=== PATIENT | male | born 1995 | race Caucasian/White ===

== ENCOUNTER → 2024-04-22 | Outpatient (CLI) | payer OTHER, SELFPAY ==
[2024-04-22 13:17] LABS: Absolute Lymphocyte Count 1.64 X10^3/uL (0.83-4.51); Absolute Neutrophil Count 7.2 X10^3/uL (2.0-7.7); Basophil# 0.04 X10^3/uL; Basophil% 0.4 % (0-1); Eosinophil# 0.04 X10^3/uL; Eosinophils% 0.4 % (0-5); Hematocrit 45.4 % (40-54); Lymphocyte # 1.64 X10^3/ul (0.83-4.51); Lymphocyte % 17.5 % (19-41); Mean Corpuscular Hgb 29.8 pg (27.0-32.0); Mean Corpuscular Volume 90.3 fL (80-94); Mean Platelet Vol. 10.4 fl (6.2-12.0); Monocyte% 4.3 % (0-10); NRBC Flagged by Analyzer 0 % (0-5); Neutrophil # 7.21 X10^3/uL (2.7-7.7); Neutrophil % 77.2 % (47-70); Platelet Count 345 K/mm3 (150-450); RBC Distribution Width CV 12.6 % (11.6-14.6); RBC Distribution Width SD 41.5 fl (35.1-43.9); Red Blood Count 5.03 M/mm3 (4.6-6.2); White Blood Count 9.4 K/mm3 (4.4-11.0)
[2024-04-22 13:35] LABS: ALB/GLOB Ratio 1.7 RATIO (0.9-2.4); AST(SGOT) 16 U/L (15-37); Alanine Aminotransfer ALT/SGPT 21 U/L (16-61); Albumin, Serum 4.7 g/dL (3.2-5.0); Alkaline Phosphatase 57 U/L (45-117); Anion Gap 7 (5-15); BUN 8 mg/dL (7-18); BUN/Creat Ratio 11.3 RATIO (10-20); Calcium,Total 9.5 mg/dL (8.5-10.1); Chloride 104 mmol/L (98-107); Creatinine, Serum 0.71 mg/dL (0.70-1.30); EST Glomerular Filtration Rate 139 mL/min (>60); Est Glom Filt Rate - Afr Amer 169 mL/min (>60); Globulin 2.8 g/dL (2.2-4.2); Glucose 92 mg/dL (74-106); Protein, Total 7.5 g/dL (6.4-8.2); Sodium Level 140 mmol/L (136-145)
[2024-04-22 14:50] LABS: HIV - WCH Non-Reactive (Nonreactive)
[2024-04-24 12:09] LABS: ANTINUCLEAR ANTIBODIES DIRECT Negative (Negative)
[2024-04-24 15:09] LABS: HEPATITIS B SURFACE AG Negative (Negative); Hep C Antibodies Non Reactive (Non Reactive); Hepatitis A IgM Antibody Negative (Negative); Hepatitis B Core AB IgM Negative (Negative); Lyme Scn Total Ab w/Rflx Negative (Negative)
== END | disposition home or self-care (01) ==
LOC: VSLAB 11:05
PROVIDERS: Visit Provider Nurse Practitioner Family
DX: R19.4 Change in bowel habit (principal); M25.50 Pain in unspecified joint; R63.4 Abnormal weight loss
CPT/HCPCS: 36415; 80053; 80074; 85025; 86038; 86618; 86703

== ENCOUNTER 2024-06-23 07:25 | Day surgery (SDC) | payer OTHER, SELFPAY ==
[2024-06-23] MEDS: Lactated Ringers 1,000 ML 15 ML IV (07:47)
[2024-06-23 07:48] VITALS: BP 117/80; PULSE 83; RESP 18; TEMP 36.2; O2SAT 100; BMI 22.6
[2024-06-23 07:56] VITALS: BP 117/80; PULSE 83; RESP 18; TEMP 36.2; O2SAT 100
--- NOTE | 2024-06-23 07:56 | PRE.ANES_ITS ---
ASA Classification* ASA Classification ASA Classification: 2 Assessment & Plan Anesthesia* Anesthesia Assessment Anesthesia Assessment: Discussed sedation and/or anesthesia options, risks, benefits, and alternatives with patient/parents/legal guardian/POA. Questions invited. The patient/parents/legal guardian/POA seems to understand and agrees to proceed with anesthesia plan. Reviewed the physical assessment, medical history, allergy history and patient home medications list prior to surgery/procedure/anesthetic and documented any changes. Performed airway and anesthesia risk assessments. Anesthesia Type Anesthesia Type: MAC (see written pre anesthesia record for full assessment ) Anesthesia Focused Assessment* Temperature: 97.2 F Pulse Rate: 83 Blood Pressure: 117/80 Respiratory Rate: 18 Pulse Ox: 100 Airway Assessment Mouth opens: >3 cm Mallampati Score: II Focused Labs Anesthesia Preop lab: CBC WBC 9.4 K/mm3 (4.4-11.0) 04/22/24 11:10 RBC 5.03 M/mm3 (4.6-6.2) 04/22/24 11:10 Hgb 15.0 g/dL (13.0-16.5) 04/22/24 11:10 Hct 45.4 % (40-54) 04/22/24 11:10 Plt Count 345 K/mm3 (150-450) 04/22/24 11:10 CHEMISTRY Potassium 4.0 mmol/L (3.5-5.1) 04/22/24 11:10 Sodium 140 mmol/L (136-145) 04/22/24 11:10 BUN 8 mg/dL (7-18) 04/22/24 11:10 Creatinine 0.71 mg/dL (0.70-1.30) 04/22/24 11:10 Glucose 92 mg/dL (74-106) 04/22/24 11:10 COAG Pre-Assessment Diagnosis/Proposed Procedure Planned Operative Procedure(s): COLONOSCOPY, EGD Anesthesia History 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 When Was Last Pacemaker Check QUESTION #4 FULL TEXT: You/Your Family Experience fever (hyperthermia) with Anesthesia Last Oral Intake Last Oral intake: Last Oral Intake NPO since 00:00 06/23/24 07:48 Meds taken in AM with sips of Yes 06/23/24 07:48 water? Meds patient instructed to take am of surgery PONV PONV - bacteriology research assistant: PONV - bacteriology research assistant Female No 06/18/24 14:27 HX of Motion Sickness No 06/18/24 14:27 HX of N/V After Surgery No 06/18/24 14:27 Non-Smoker No 06/18/24 14:27 Duration of Surgery greater No 06/18/24 14:27 than 60 minutes Number of Risk Factors PONV Score Height & Weight Height & Weight: Anesthesia: Height & Weight Height 6 ft 06/23/24 07:48 Weight: 75.568 kg 06/23/24 07:48 Body Mass Index (BMI) 22.6 06/23/24 07:48 Respiratory Assessment Respiratory Assessment - bacteriology research assistant: Respiratory Tract Infection Hx - bacteriology research assistant Hx Respiratory Tract Infection No 06/18/24 14:27 STOP Sleep Apnea STOP Sleep Apnea - bacteriology research assistant: STOP Sleep Apnea - bacteriology research assistant Hx Hypertension No 06/18/24 14:27 Hx Sleep Apnea No 06/18/24 14:27 CPAP BIPAP Do you snore loudly (louder Yes 06/18/24 14:27 than talking or can be heard Do you often feel tired/ No 06/18/24 14:27 fatigued/ sleepy during daytime? Has anyone observed you stop No 06/18/24 14:27 breathing during sleep? STOP Results Negative 06/18/24 14:27 QUESTION #5 FULL TEXT : Do you snore loudly (louder than talking or can be heard through closed doors)? 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 Specify any problems Hx of Preganancy in last 3 N/A 06/18/24 14:27 Months Nurse Filling Out Transfusion [email or web address] 06/18/24 14:27 & Questions: Date: 06/18/24 06/18/24 14:27 Time: 14:30 06/18/24 14:27 Patient unable to answer at this time (ie. confused, unrespo /Reproduction History /Reproductive History - bacteriology research assistant: /Reproductive Hx- bacteriology research assistant Hx Now Gestational Age (in weeks): EDC: Hx Hx Para Hx Section SAB Active Medications Active Medications: Current Medications Generic Name Dose Route Start Last Admin Trade Name Freq PRN Reason Stop Dose Admin Lactated Ringer's 1,000 mls @ 15 mls/hr 06/23/24 07:30 06/23/24 07:47 IV 15 mls/hr .Q48H KARL Administration PFSH Medical History Hypothyroid Back pain Smoker Gastric reflux Home Medications ?Medication ?Instructions ?Recorded ?Last Taken ?Type dextroamphetamine-amphetamine ER 1 cap PO QDAY 05/20/24 06/23/24 History 30 mg 24hr capsule,extend release omeprazole 40 mg capsule,delayed 40 mg PO DAILY #60 caps 05/20/24 06/22/24 Rx release Allergy/AdvReac Type Severity Reaction Status Date / Time No Known Allergies Allergy Verified 06/23/24 07:47 Surgical History [place] teeth extracted H/O rhinoplasty Social History Smoking Status: Current every day smoker tobacco type: e-cigarettes alcohol intake: never substance use type: does not use Review of Systems (Anesthesia) ROS Narrative System reviewed and no additional complaints, except as documented.
--- NOTE | 2024-06-23 08:07 | PCM.HP.BLA ---
History and Physical Date of Admission: 06/23/24 Intake Vital Signs 05/20/2413:03 Height 6 ft Weight: 167 lb BMI 22.6 BP 153/92 H Blood Pressure Location Rt brachial Position Sitting Respiration 18 Pulse 75 Pulse Source Monitor Temp 97.3 F L Temp Source Temporal Pulse Oximetry (%) 100 Oxygen Delivery Method room air Intake Visit Reasons: BLOOD IN STOOL Chief Complaint: blood in stool Accompanied by: Daughter Is patient in pain?: No Allergies No Known Allergies Allergy (Unverified 05/20/24 13:04) Medications ?Medication ?Instructions ?Recorded ?Confirmed ?Type dextroamphetamine-amphetamine ER 1 cap PO QDAY 05/20/24 05/20/24 History 30 mg 24hr capsule,extend release omeprazole 40 mg capsule,delayed 40 mg PO DAILY #60 caps 05/20/24 05/20/24 Rx release PFSH Surgical History (Updated 05/20/24 @ 13:03 by Kristen Espinosa LPN) [place] teeth extracted H/O rhinoplasty Social History (Updated 05/20/24 @ 13:03 by Kristen Espinosa LPN) Smoking Status: Current every day smoker tobacco type: e-cigarettes alcohol intake: never substance use type: does not use HPI HPI HPI: Patient is a 28-year-old male here with several issues. He has been having epigastric pain and unintentional weight loss for the last 6 months. He has also been noting for the last month and a half he has had blood in his stool and mucousy stools. He has never had a colonoscopy or EGD. He denies nausea or vomiting. ROS General General: Yes weight change (loss) and fatigue; No appetite, colon cancer, breast cancer or weakness HEENT HEENT: No difficulty swallowing, eye injury, eye surgery, swollen glands or hoarseness Endo Endocrine: No thyroid disease, diabetes mellitus, thyroid cancer, Hair loss, heat intolerance or cold intolerance Skin Skin: No rash or changing moles Musc Musculoskeletal: Yes joint pain; No back problems, arthritis, rheumatoid arthritis or gout Cardio Cardiovascular: No murmur, pacemaker, heart disease, atrial fibrillation, high blood pressure, heart attack, heart stent, palpitations, shortness of breat with exertion or chest pain Psych Psychiatric: Yes depression and anxiety; No hearing voices Resp Respiratory: Yes shortness of breath, No sleep apnea, No cough, No COPD, No asthma, No emphysema and No wheezing Gastro Gastrointestinal: Yes abdominal pain, No nausea or vomiting, No diarrhea, Yes constipation, Yes blood in stool, Yes acid reflux, Yes hemorrhoids, No ulcers, No gallbladder problem and No black,tarry stools Moe Hematologic: No blood thinners, No blood disorders, No bleeding, No anemia and No blood clots Neuro Neurologic: No numbness, No tingling and No weakness Exam Const General: cooperative Orientation: alert and oriented x3 HENMT Head: normal to inspection Neck Neck: normal visual inspection and full ROM Chest Chest palpation & inspection: normal inspection of the chest Resp Effort & Inspection: normal respiratory effort Auscultation: clear to auscultation bilaterally Cardio Rate: regular rate Rhythm: regular rhythm GI Inspection: non-distended Palpation: soft and nontender Skin General: no rashes or lesions noted Neuro General: patient alert and patient oriented x3 Extrem General: full ROM Psych Appearance: grossly normal Mental Status: mental status grossly normal Assessment and Plan Assessment and Plan (1) Blood in stool, gautam: Status: Acute (2) Acid reflux: Status: Acute (3) Epigastric pain: Status: Acute Orders: Orders Colonoscopy Today EGD Today Medications: New omeprazole 40 mg PO DAILY 60 caps 0RF Plan Patient is having epigastric pain which sounds like peptic ulcer disease as it happens after eating. He says he has been limiting his diet for the last 6 months and completely changed his lifestyle due to the pain and he has been losing weight for the last 6 months. He also notes blood clots in the stool and mucus in his stool which is new over the last month and a half. Plan for EGD and colonoscopy to evaluate and I will also order him a PPI. I explained endoscopy in detail to the patient. I explained the risks including but not limited to stroke or heart attack with anesthesia, perforation of the GI tract, bleeding, infection. I explained that any of these could necessitate further emergency surgery. The patient understands and all questions were answered sufficiently. The patient wishes to proceed with procedure. Mitch Corral MD Pager: [facility] [address] [place] [address], [address] [place] [address] Office: I have examined the patient and the H&P has been reviewed. There are no clinical changes since date of exam.
[2024-06-23 08:50] VITALS: BP 117/80; BP 119/73; PULSE 75; RESP 16; TEMP 36.4; O2SAT 100
--- NOTE | 2024-06-23 08:54 | OP.CCLET_ITS ---
06/23/2024 Isidro Spain [facility], [employer] Re : Upper GI endoscopy procedure for Jaquelin Escudero Dear Judit This procedure was performed on Sunday, June 23, 2024. My impressions and recommendations are as follows: Impressions : - Normal esophagus. - Normal stomach. - Normal examined duodenum. - No specimens collected. Recommendations : - Discharge patient to home. - Resume previous diet. - Continue present medications. - Return to primary care physician. My findings are described in the full procedure note, which is enclosed. If I can be of further assistance, please feel free to contact me at Doctor phone number(s): , Work: . Sincerely, Mitch Corral MD 06/23/2024 8:54:21 AM This report has been signed electronically.
--- NOTE | 2024-06-23 08:54 | OP.EGD_ITS ---
Patient Name: Jaquelin Escudero Procedure Date: 06/23/2024 8:46 AM Date of : 1995 Age: 28 Procedure: Upper GI endoscopy Indications: Heartburn Providers: Mitch Corral MD Referring MD: Isidro Spain [facility], Director Traffic And Planning-c Medicines: Propofol per Anesthesia Patient Profile: This is a 28 year old male. Refer to note in patient chart for documentation of history and physical. Patient has symptoms. Complications: No immediate complications. Procedure: Pre-Anesthesia Assessment: - Prior to the procedure, a History and Physical was performed, and patient medications and allergies were reviewed. The patient's tolerance of previous anesthesia was also reviewed. The risks and benefits of the procedure and the sedation options and risks were discussed with the patient. All questions were answered, and informed consent was obtained. Prior Anticoagulants: The patient has taken no anticoagulant or antiplatelet agents. After reviewing the risks and benefits, the patient was deemed in satisfactory condition to undergo the procedure. After obtaining informed consent, the endoscope was passed under direct vision. Throughout the procedure, the patient's blood pressure, pulse, and oxygen saturations were monitored continuously. The gastroscope was introduced through the mouth, and advanced to the third part of duodenum. The upper GI endoscopy was accomplished without difficulty. The patient tolerated the procedure well. Scope In: 8:25:46 AM Scope Out: 8:28:00 AM Total Procedure Duration Time 0 hours 2 minutes 14 seconds Findings: The esophagus was normal. The stomach was normal. The examined duodenum was normal. Impression: - Normal esophagus. - Normal stomach. - Normal examined duodenum. - No specimens collected. Recommendation: - Discharge patient to home. - Resume previous diet. - Continue present medications. - Return to primary care physician. Procedure Code(s): --- Professional --- 24727, Esophagogastroduodenoscopy, flexible, transoral; diagnostic, including collection of specimen(s) by brushing or washing, when performed (separate procedure) Diagnosis Code(s): --- Professional --- R12, Heartburn CPT copyright 2021 [employer]. All rights reserved. The codes documented in this report are preliminary and upon supervisor propellant charge loading review may be revised to meet current compliance requirements. Mitch Corral MD 06/23/2024 8:54:21 AM This report has been signed electronically. Number of Addenda: 0 Note Initiated On: 06/23/2024 8:46 AM
--- NOTE | 2024-06-23 08:54 | PCM.POST.ANE ---
Anesthesia: Postop Eval I Current Vital Signs Temperature: 97.6 F Pulse Rate: 73 Blood Pressure: 119/73 Respiratory Rate: 14 Pulse Ox: 100 Oxygen Delivery Method: Room Air Assessment Airway patent: Yes Spontaneous unlabored respirations: Yes Mental status: Asleep nausea: No Vomiting: No Anesthesia Complication: No Fluid Hydration Crystalloid volume administer (ml): 800 Total IV fluid infused: 800 Progress Note Anesthesia document: Postop Eval 1 completed: Yes
[2024-06-23 08:55] VITALS: BP 117/71; BP 117/80; BP 119/73; PULSE 73; PULSE 89; RESP 14; RESP 16; TEMP 36.4; O2SAT 100
--- NOTE | 2024-06-23 08:55 | OP.COLON_ITS ---
Patient Name: Jaquelin Escudero Procedure Date: 06/23/2024 8:18 AM Date of : 1995 Age: 28 Procedure: Colonoscopy Indications: Rectal bleeding Providers: Mitch Corral MD Referring MD: Isidro Spain [facility], Professor Of Chemical Engineering-c Medicines: Propofol per Anesthesia Patient Profile: This is a 28 year old male. Refer to note in patient chart for documentation of history and physical. Last Colonoscopy: none. The patient's first colonoscopy is today. Complications: No immediate complications. Procedure: Pre-Anesthesia Assessment: - Prior to the procedure, a History and Physical was performed, and patient medications and allergies were reviewed. The patient's tolerance of previous anesthesia was also reviewed. The risks and benefits of the procedure and the sedation options and risks were discussed with the patient. All questions were answered, and informed consent was obtained. Prior Anticoagulants: The patient has taken no anticoagulant or antiplatelet agents. After reviewing the risks and benefits, the patient was deemed in satisfactory condition to undergo the procedure. After I obtained informed consent, the scope was passed under direct vision. Throughout the procedure, the patient's blood pressure, pulse, and oxygen saturations were monitored continuously. The Endoscope was introduced through the anus and advanced to the cecum, identified by appendiceal orifice and ileocecal valve. The colonoscopy was performed without difficulty. The patient tolerated the procedure well. The quality of the bowel preparation was good. The ileocecal valve, appendiceal orifice, and rectum were photographed. Scope In: 8:32:51 AM Scope Withdrawal Time 0 hours 4 minutes 34 seconds Scope Out: 8:45:50 AM Total Procedure Duration Time 0 hours 12 minutes 59 seconds Findings: The entire examined colon appeared normal on direct and retroflexion views. Impression: - The entire examined colon is normal on direct and retroflexion views. - No specimens collected. Recommendation: - Discharge patient to home. - Resume previous diet. - Continue present medications. - Repeat colonoscopy at age 44 for screening purposes. Procedure Code(s): --- Professional --- 60477, Colonoscopy, flexible; diagnostic, including collection of specimen(s) by brushing or washing, when performed (separate procedure) Diagnosis Code(s): --- Professional --- K62.5, Hemorrhage of anus and rectum CPT copyright 2021 [employer]. All rights reserved. The codes documented in this report are preliminary and upon hyster driver review may be revised to meet current compliance requirements. Mitch Corral MD 06/23/2024 8:55:28 AM This report has been signed electronically. Number of Addenda: 0 Note Initiated On: 06/23/2024 8:18 AM
--- NOTE | 2024-06-23 08:56 | OP.CCLET_ITS ---
06/23/2024 Isidro Spain [facility], Applications Coordinator-c Re : Colonoscopy procedure for Jaquelin Escudero Dear Judit This procedure was performed on Sunday, June 23, 2024. My impressions and recommendations are as follows: Impressions : - The entire examined colon is normal on direct and retroflexion views. - No specimens collected. Recommendations : - Discharge patient to home. - Resume previous diet. - Continue present medications. - Repeat colonoscopy at age 44 for screening purposes. My findings are described in the full procedure note, which is enclosed. If I can be of further assistance, please feel free to contact me at Doctor phone number(s): , Work: . Sincerely, Mitch Corral MD 06/23/2024 8:55:28 AM This report has been signed electronically.
[2024-06-23 09:00] VITALS: BP 117/80; BP 118/67; PULSE 70; RESP 18; TEMP 36.4; O2SAT 100
[2024-06-23 09:01] VITALS: BP 117/80
--- NOTE | 2024-06-23 15:21 | PCM.POSTANE2 ---
Anesthesia Postop Eval I Sum Postop Eval Completion status Anesthesia document: Postop Eval 1 completed: Yes Anesthesia Postop Eval I Summary Anesthesia Postop Eval I Summary: Anesthesia Postop Eval I: Assessment Summary Airway patent Yes 06/23/24 08:55 [email or web address] Spontaneous unlabored Yes 06/23/24 08:55 [email or web address] respirations Mental status Asleep 06/23/24 08:55 [email or web address] nausea No 06/23/24 08:55 [email or web address] Vomiting No 06/23/24 08:55 [email or web address] Anesthesia Postop Eval I: Fluid Summary Crystalloid volume administer 800 06/23/24 08:55 [email or web address] (ml) Colloids volume administered ( ml) Blood Product volume administered (ml) Total IV fluid infused 800 06/23/24 08:55 [email or web address] Anesthesia Postop Eval I: Summary Notes Anesthesia Complication No 06/23/24 08:55 [email or web address] Anesthesia Complication Comment: Post-operative progress note Anesthesia: Postop Eval II Evaluation Mental status: Awake and Calm Pain Level: 0 nausea: No Vomiting: No Complications Anesthesia Complication: No
== END 2024-06-23 09:30 | disposition home or self-care (01) ==
LOC: EN 07:27 → AC 07:28
PROVIDERS: PCP Nurse Practitioner Family; Referring Provider Nurse Practitioner Family; Visit Provider Surgery
PROC: 0DJD8ZZ Inspection of Lower Intestinal Tract, Via Natural or Artificial Opening Endoscopic (ICD-10-PCS; CPT 45378; principal; 2024-06-23 07:55)
DX: K21.9 Gastro-esophageal reflux disease without esophagitis (principal); K62.5 Hemorrhage of anus and rectum; R63.4 Abnormal weight loss; F17.290 Nicotine dependence, other tobacco product, uncomplicated; Z68.22 Body mass index [BMI] 22.0-22.9, adult; Z79.899 Other long term (current) drug therapy
CPT/HCPCS: 43235; 45378; J7120; J2405

== ENCOUNTER → 2024-07-07 | Outpatient (CLI) | payer OTHER, SELFPAY ==
[2024-07-10 14:10] LABS: Calprotectin, Stool 32 ug/g (0-120)
== END | disposition home or self-care (01) ==
LOC: LABSPEC 11:28
PROVIDERS: PCP Nurse Practitioner Family; Referring Provider Surgery; Visit Provider Surgery
DX: K92.1 Melena (principal); K58.9 Irritable bowel syndrome, unspecified
CPT/HCPCS: 83993; 87506